=== PATIENT | male | born 1995 | race Two or more races ===

== ENCOUNTER 2017-03-02 10:57 | Emergency (ER) | payer OTHER ==
--- NOTE | 2017-03-02 11:26 | EDPHY ---
H & P Stated Complaint: PNEUMOTHORAX LEFT LUNG Time Seen by Provider: 03/02/17 11:05 HPI/ROS: CHIEF COMPLAINT: Pleuritic left chest pain HISTORY OF PRESENT ILLNESS: The patient presents to the ED with a 1 day history of pleuritic left chest pain. The patient reportedly developed symptoms last night. He did have some mild coughing associated with his symptoms. He denies history of significant trauma, fever or additional history of prior pneumothorax. The patient was seen in urgent care clinic and diagnosed with a pneumothorax and referred to the ED for further evaluation. In the ED, the patient states he has mild ongoing pleuritic chest pain. He denies significant dyspnea or additional complaints. REVIEW OF SYSTEMS: A comprehensive 10 point review of systems is otherwise negative aside from elements mentioned in the history of present illness. Source: Patient Exam Limitations: No limitations - Personal History Current Tetanus Diphtheria and Acellular Pertussis (TDAP): Yes Tetanus Vaccine Date: < 10 years - Medical/Surgical History Hx Asthma: No Hx Chronic Respiratory Disease: No Hx Diabetes: No Hx Cardiac Disease: No Hx Renal Disease: No Hx Cirrhosis: No Hx Alcoholism: No Hx HIV/AIDS: No Hx Splenectomy or Spleen Trauma: No Other PMH: medical adhd. surgery growth from forehead removed as child - Social History Smoking Status: Never smoked - Physical Exam Exam: General Appearance: Alert, no distress Eyes: Pupils equal and round no pallor or injection ENT, Mouth: Mucous membranes moist Respiratory: Distant breath sounds noted left lung field Cardiovascular: Regular rate and rhythm Gastrointestinal: Abdomen is soft and nontender, no masses, bowel sounds normal Neurological: A&O, normal motor function, normal sensory exam, normal cranial nerves Skin: Warm and dry, no rashes Musculoskeletal: Neck is supple nontender Extremities: symmetrical, full range of motion Constitutional: Initial Vital Signs Temperature (C) 36.5 C 03/02/17 10:58 Heart Rate 73 03/02/17 10:58 Respiratory Rate 16 03/02/17 10:58 Blood Pressure 114/81 H 03/02/17 10:58 O2 Sat (%) 97 03/02/17 10:58 O2 Delivery Mode Room Air O2 (L/minute) 2 Allergies/Adverse Reactions: No Known Allergies Allergy (Verified 03/02/17 11:02) Home Medications: Medication Instructions Recorded VJANEE 03/01/14 Hydrocodone/APAP 5/325 [Bullard 1 - 2 each PO Q6 PRN #20 tab 03/02/17 5/325] Medical Decision Making - Diagnostics EKG Interpretation: EKG: Complete interpretation has been separately recorded in the [employer] archive. Summary impression: Sinus rhythm, rate 63 Imaging Results: Imaging Impressions Chest X-Ray 03/02/17 11:15 Impression: No significant change in a moderate left pneumothorax without evidence of tension. Chest X-Ray 03/02/17 12:49 Impression: Tiny residual left apical pneumothorax post chest tube placement ED Course/Re-evaluation: I reviewed the x-ray from the urgent care and is of poor technical quality, a repeat chest x-ray was ordered. Patient was given supplemental oxygen. He was placed on a paraprofessional interpreter. Patient has a moderate left-sided pneumothorax. He is hemodynamically stable. Consultation was made with Dr. Sarbjit Regalado at 11:45m. A Heimlich chest tube was placed by the general surgeon at 12. Postprocedure chest x-ray demonstrates improvement of the pneumothorax. Patient will be discharged home and follow up with Dr. Sarbjit Regalado on for a repeat xray and clinic visit. Patient was re-evaluated at 1:20 p.m.. His vital signs are stable. The patient did received oral ibuprofen in the emergency department. He will be discharged home with a prescription for Bullard. He is given customary aftercare instructions and return precautions. Differential Diagnosis: Differential diagnosis considered includes rib fracture, pneumothorax, hemothorax - Data Points Medications Given: Discontinued Medications Ibuprofen (Motrin) 600 mg PO EDNOW ONE Stop: 03/02/17 13:05 Last Admin: 03/02/17 13:14 Dose: 600 mg Departure - Departure Disposition: Home, Routine, Self-Care Clinical Impression: Pneumothorax, left Condition: Good Instructions: Spontaneous Pneumothorax (ED) Additional Instructions: 1. Please follow up with the surgeon on . Contact his office today to schedule a follow-up visit. Prior to that appointment, go to the imaging department and get a repeat x-ray done. You have been given a prescription to take with you to the imaging appointment. 2. Please return to the ED immediately for increasing shortness of breath or other concerns. 3. Take Ibuprofen or Motrin 600 mg by mouth three times a day. 4. Bullard as needed for severe pain Referrals: Sarbjit Regalado MD [Medical Doctor] - As per Instructions Prescriptions: Hydrocodone/APAP 5/325 [Bullard 5/325] 1 - 2 each PO Q6 PRN #20 tab PRN Reason: for pain
--- NOTE | 2017-03-02 12:02 | CPEKG ---
Heart Rate: 63 RR Interval: 952 P-R Interval: 156 QRSD Interval: 82 QT Interval: 376 QTC Interval: 385 P Riley: 32 QRS Riley: 74 T Wave Riley: 79 EKG Severity - NORMAL ECG - EKG Impression: SINUS RHYTHM Electronically Signed By: Francisco J Marin 02-Mar-2017 13:19:55
[2017-03-02] MEDS ORDERED: IBUPROFEN 600 MG TAB PO ONE (13:04)
[2017-03-02 14:08] VITALS: BP 126/93; PULSE 66; RESP 17; TEMP 98.8; O2SAT 98
--- NOTE | 2017-03-02 15:33 | GCON ---
[f rep st] CONSULTATION CONSULTATION DATE OF CONSULTATION: 03/02/2017 CHIEF COMPLAINT: Left chest pain. HISTORY OF PRESENT ILLNESS: This is an otherwise healthy 21-year-old male who presents to the emerg ency department with an acute onset of left chest pain. Patient states that he was in his usual sta te of health and started developing some discomfort in his chest last night. He denies having any t rauma or any inciting event but does state that he did have some coughing last night which may have started this. He subsequently presented to urgent care earlier today, where a chest film was perfor med which showed a pneumothorax on the left side. He was subsequently referred to the emergency dep artment here. Throughout his stay in the emergency department he has been hemodynamically stable on room air and stating that his chest discomfort is improving. A repeat chest film in the emergency department here does show persistent left pneumothorax, mild to moderate in size. On my consultatio n, the patient is currently on room air and doing well, complaining of minimal left-sided chest disc omfort without radiation 4/10 in intensity. PAST MEDICAL HISTORY: None. SURGICAL HISTORY: None. REVIEW OF SYSTEMS: A full 10-point review was performed and unless explicitly stated above, is othe rwise negative. ALLERGIES: None. SOCIAL HISTORY: Has alcohol about once a month. Denies any illicit drug use and is currently on ni cotine patches for smoking cessation. PHYSICAL EXAM: VITAL SIGNS: Temperature 36.5, blood pressure 120/90, heart rate 73, and he is 97% on room air. GENERAL: He is alert and oriented, in no acute distress. LUNGS: Clear to auscultati on bilaterally. He is not using any accessary muscles for respiration. CV: He has a regular rate and rhythm without any murmurs. ABDOMEN: Soft, nondistended, nontender. EXTREMITIES: Warm, well perfused. IMAGING: Performed in the emergency department shows a moderate left pneumothorax without evidence of tension. ASSESSMENT AND PLAN: A 21-year-old male with spontaneous pneumothorax. I discussed the risks, bene fits, and alternatives of chest tube thoracostomy with the patient. I did tell him that more than l gerryely given the size we would be able to place a small pigtail catheter and a Heimlich valve and hav e him follow up with me in clinic. I did discuss with him in detail strict return precautions if he should have any recurrent symptoms and/or worsening shortness of breath to present back to the [facility] department emergently where he would likely need upgrading in his thoracostomy tube. He verba lized understanding of this. We will subsequently plan to place chest tube in the emergency bay. I f it does show that the lung is expanded, he will follow up with me in 2 days for a repeat chest vicki m and evaluation at that time. /[id number]/MODL
--- NOTE | 2017-03-03 06:00 | GOP ---
[f rep st] OPERATIVE REPORT DATE OF OPERATION: 03/02/2017 SURGEON: Sarbjit Regalado MD SOFA INSPECTOR: None. ANESTHESIA: 1% lidocaine with epinephrine. PREOPERATIVE DIAGNOSIS: Spontaneous left-sided pneumothorax. POSTOPERATIVE DIAGNOSIS: Spontaneous left-sided pneumothorax. PROCEDURE PERFORMED: An 8-[place] tube thoracostomy placement to the left chest. FINDINGS: Successful evacuation and humphrey of air upon entering the chest. Post placement shows near complete resolution. SPECIMENS: None. ESTIMATED BLOOD LOSS: 2 cc. DESCRIPTION OF PROCEDURE: The patient was greeted in the emergency department after explaining the risks, benefits and alternatives. Consent was signed. A [employer] time-out was the n performed. The left chest was then prepped and draped in the typical sterile fashion. After balaji lai so, I anesthetized the area in the approximate 5th intercostal space using 1% lidocaine with epine phrine. After a successful anesthesia was then induced I, using an 11 blade scalpel, nicked the nex t at the area through which I placed the catheter and trocar. Once successfully into the chest cavi ty, I threaded the 8-[place] catheter into the chest cavity and did have a humphrey of air upon entering. Once this was done, I attached it to the Heimlich valve without incident and attached it to the sk in with an interrupted silk suture. Sterile dressing was then placed. The patient tolerated the pr ocedure well without any intraoperative complications. DRAINS: 8-[place] chest tube to the left chest. /[id number]/MODL
== END 2017-03-02 14:07 | disposition home or self-care (01) ==
DX: J93.9 Pneumothorax, unspecified (principal)

== ENCOUNTER → 2017-03-04 | Outpatient (CLI) | payer OTHER | LOC: FIMAGING 11:43 | PROVIDERS: ATTEND Emergency Medicine | DX: J93.9 Pneumothorax, unspecified (principal) ==